=== PATIENT | female | born 1980 | race Caucasian/White ===

== ENCOUNTER 2021-08-08 12:42 | Outpatient (CLI) | payer OTHER | END 2021-08-08 12:59 | disposition home or self-care (01) | LOC: SONOGRAMA 12:42 | PROVIDERS: ATTEND Physical Medicine & Rehabilitation Hospice and Palliative Medicine | DX: M77.11 Lateral epicondylitis, right elbow (principal); M25.521 Pain in right elbow; M25.531 Pain in right wrist; M67.833 Other specified disorders of tendon, right wrist ==

== ENCOUNTER 2021-10-06 09:44 | Outpatient (CLI) | payer OTHER | END 2021-10-06 11:43 | disposition home or self-care (01) | LOC: MRI 09:44 | PROVIDERS: ATTEND Physical Medicine & Rehabilitation Hospice and Palliative Medicine | DX: M25.531 Pain in right wrist (principal); M67.833 Other specified disorders of tendon, right wrist; S63.391A Traumatic rupture of other ligament of right wrist, initial encounter | CPT/HCPCS: 73221 ==